=== PATIENT | male | born 1980 | race Caucasian/White ===

== ENCOUNTER 2019-03-18 09:42 | Inpatient (IN) | payer MEDICAID ==
[~2019-03-18] VITALS: Ht 180.3 cm; Wt 128.5 kg
[2019-03-18 10:13] LABS: BASOPHILS % (AUTO) 0.6 % (0.0-2.0); EOSINOPHILS % (AUTO) 0.5 % (1.0-6.0); HEMATOCRIT 48.1 % (41-53); HEMOGLOBIN 18.5 g/dL (13.5-17.5); LYMPHOCYTES # (AUTO) 3.7 K/uL (1.0-4.8); LYMPHOCYTES % (AUTO) 20.7 % (22.0-44.0); MEAN CORPUSCULAR HEMOGLOBIN 34.9 pg (26.0-34.0); MEAN CORPUSCULAR VOLUME 91 fL (80-100); MONOCYTES # (AUTO) 1.3 K/uL (0.1-1.0); NEUTROPHILS # (AUTO) 12.8 K/uL (1.8-7.7); NEUTROPHILS % (AUTO) 71.2 % (40.0-70.0); PLATELET COUNT (AUTO) 326 K/uL (150-450); RED CELL DISTRIBUTION WIDTH 14.5 % (11.5-14.5)
[2019-03-18] MEDS ORDERED: SODIUM CHLORIDE 0.9% 1,000 ML IV ONE (10:15)
[2019-03-18] MEDS ORDERED: DICYCLOMINE HCL 20 MG TABLET PO ONE (10:15)
[2019-03-18] MEDS ORDERED: ONDANSETRON HCL 4 MG/2 ML VIAL IVP ONE (10:15)
[2019-03-18 10:41] LABS: CHLORIDE 87 mmol/L (98-107); POTASSIUM 4.9 mmol/L (3.5-5.1); SODIUM SERUM 121 mmol/L (136-145)
[2019-03-18 10:42] LABS: ANION GAP 26 mmol/L (8-16); CARBON DIOXIDE 8 mmol/L (22-29)
[2019-03-18 10:43] LABS: GLUCOSE,RANDOM 644 mg/dL (70-110)
[2019-03-18] MEDS ORDERED: POTASSIUM CHL 20 MEQ/0.45% NS 1,000 ML IV PRN ×2 (10:46→22:06)
[2019-03-18] MEDS ORDERED: DEXTROSE 5%-0.45% SODIUM CHL 1,000 ML IV PRN ×2 (10:46→22:06)
[2019-03-18] MEDS ORDERED: POTASSIUM CHLORIDE 40 MEQ in SODIUM CHLORIDE 0.45% 1,000 ML IV PRN (10:46)
[2019-03-18] MEDS ORDERED: SODIUM CHLORIDE 0.9% 1,000 ML IV SCH ×2 (10:46→22:06)
[2019-03-18] MEDS ORDERED: SODIUM CHLORIDE 0.45% 1,000 ML IV PRN ×2 (10:46→22:06)
[2019-03-18] MEDS ORDERED: INSULIN REGULAR, HUMAN 100 UNITS in SODIUM CHLORIDE 0.9% 99 ML IV PRN ×4 (10:46→22:06)
[2019-03-18] MEDS ORDERED: DEXTROSE 50%-WATER 25 GM/50 ML SYRINGE IVP PRN ×2 (11:00→22:15)
[2019-03-18] MEDS ORDERED: INSULIN REGULAR, HUMAN 100 UNITS/ML IVP ONE (11:00)
[2019-03-18] MEDS ORDERED: CefTRIAXone 1 GM/DEXTROSE 50 ML IV ONE (11:00)
[2019-03-18] MEDS ORDERED: VANCOMYCIN HCL 1.5 GM in DEXTROSE 5%-WATER 250 ML IV ONE (11:00)
[2019-03-18 11:14] LABS: BILIRUBIN,TOTAL 0.5 mg/dL (0.1-1.0); CALCIUM, TOTAL 8.2 mg/dL (8.8-10.5); GLOMERULAR FILTR. RATE CALC 42 mL/min (>60); UREA NITROGEN, BLOOD 20 mg/dL (7-18)
[2019-03-18 11:15] LABS: ALANINE AMINOTRANSFERASE 30 U/L (12-78); ALBUMIN 4.6 g/dL (3.4-5.0); ALKALINE PHOSPHATASE 142 U/L (46-116); ASPARTATE AMINOTRANSFERASE 16 U/L (15-37); TOTAL PROTEIN, SERUM 7.9 g/dL (6.4-8.2)
[2019-03-18 11:16] LABS: CREATININE 1.83 mg/dL (0.60-1.30)
[2019-03-18 11:28] LABS: LIPASE 3055 U/L (73-393)
[2019-03-18 11:33] LABS: ABG BASE EXCESS -28.7 mmol/L (-2.0-3.0); ABG CARBOXYHEMOGLOBIN 0.2 % (0.0-1.5); ABG METHEMOGLOBIN 0.5 % (0.0-1.5); ABG OXYGEN CONTENT 22.3 mL/dL (15.0-23.0); ABG OXYGEN SATURATION 98.4 % (95.0-98.0); ABG OXYHEMOGLOBIN 97.7 % (94.0-100.0); ABG TOTAL HEMOGLOBIN 16.1 G/dL (12.0-18.0); PO2, ARTERIAL BG 136.3 mmHg (92.0-100.0); SOURCE, BLOOD GAS ARTERIAL; TEMPERATURE, FAHRENHEIT, BG 97.9 FAHREN (96.0-98.6)
[2019-03-18 11:35] LABS: ABG PCO2 9 mmHg (35-45); ABG PH 7.023 (7.350-7.450)
[2019-03-18 11:36] LABS: ABG HCO3 7.2 mmol/L (22.0-26.0); O2 DEVICE,BLOOD GAS ROOM AIR (ROOM AIR); SITE, BLOOD GAS RT RADIAL
[2019-03-18 11:39] LABS: GLUCOSE,POINT OF CARE 531 MG/DL (70-110)
[2019-03-18 11:55] LABS: APPEARANCE,URINE CLEAR (CLEAR); BILIRUBIN,URINE NEGATIVE (NEGATIVE); GLUCOSE, URINE (UA) >=1000 mg/dL (NEGATIVE); KETONES,URINE >=80 mg/dL (NEGATIVE); LEUKOCYTE ESTERASE ,URINE NEGATIVE (NEGATIVE); NITRATE,URINE NEGATIVE (NEGATIVE); OCCULT BLOOD,URINE MODERATE (NEGATIVE); PROTEIN,URINE SEE CONFIRM (NEGATIVE); UROBILINOGEN,URINE 0.2 mg/dL (<=1.0)
[2019-03-18 11:56] LABS: GLUCOSE,POINT OF CARE 501 MG/DL (70-110)
[2019-03-18] MEDS ORDERED: MORPHINE SULFATE 4 MG/ML SYRINGE IVP ONE (12:00)
[2019-03-18 12:01] LABS: AMPHET/METH SCREEN,URINE NEGATIVE (NEGATIVE); BARBITURATE SCREEN, URINE NEGATIVE (NEGATIVE); BENZODIAZEPINES SCREEN,URINE NEGATIVE (NEGATIVE); CANNABINOID SCREEN,URINE NEGATIVE (NEGATIVE); COCAINE SCREEN,URINE NEGATIVE (NEGATIVE); METHADONE SCREEN, URINE NEGATIVE (NEGATIVE); OPIATE SCREEN,URINE NEGATIVE (NEGATIVE)
[2019-03-18 12:12] LABS: SULFOSALICYLIC ACID,URINE Trace (Negative)
[2019-03-18 12:17] LABS: BACTERIA,URINE None Seen /HPF (None Seen); RBC,URINE None Seen /HPF (0-2); SQUAMOUS EPITHELIAL CELL,UR Few /LPF (None Seen); WBC,URINE 0-2 /HPF (0-5)
[2019-03-18 12:19] LABS: PHENCYCLIDINE SCREEN,URINE NEGATIVE (NEGATIVE)
[2019-03-18 12:29] LABS: GLUCOSE,POINT OF CARE 521 MG/DL (70-110)
[2019-03-18 12:45] LABS: HEMATOCRIT 45.9 % (41-53); HEMOGLOBIN 15.1 g/dL (13.5-17.5); RED BLOOD CELL COUNT(AUTO) 5.03 MIL/uL (4.50-5.90)
[2019-03-18 12:46] LABS: MEAN CORPUSCULAR VOLUME 91 fL (80-100); PLATELET COUNT (AUTO) 296 K/uL (150-450); RED CELL DISTRIBUTION WIDTH 15.1 % (11.5-14.5)
[2019-03-18 13:14] LABS: BAND NEUTROPHILS % (MANUAL) 1 % (0-5); BASOPHILS % (MANUAL) 1 % (0-2); LYMPHOCYTES % (MANUAL) 19 % (22-44); MONOCYTES % (MANUAL) 7 % (2-9); SEGMENTED NEUTROPHILS % 72 % (40-70)
[2019-03-18 13:15] LABS: PLATELET MORPHOLOGY COMMENT GIANT PLTS PRESENT
[2019-03-18 13:22] LABS: GLUCOSE,POINT OF CARE 494 MG/DL (70-110)
[2019-03-18] MEDS ORDERED: ONDANSETRON HCL 4 MG/2 ML VIAL IVP PRN (13:30)
[2019-03-18] MEDS ORDERED: 0.9% SODIUM CHLORIDE 10 ML SYRINGE IVP PRN (13:30)
[2019-03-18] MEDS ORDERED: ACETAMINOPHEN 325 MG TABLET PO PRN (13:30)
[2019-03-18] MEDS: INSULIN REGULAR, HUMAN 100 UNITS/ML IVP PRN ×6 (13:30→22:44)
[2019-03-18 13:59] LABS: LACTIC ACID 3.5 mmol/L (0.4-2.0)
[2019-03-18 14:42] LABS: GLUCOSE,POINT OF CARE 479 MG/DL (70-110)
[2019-03-18 15:06] LABS: POTASSIUM 4.8 mmol/L (3.5-5.1)
[2019-03-18] MEDS ORDERED: SODIUM BICARBONATE 150 MEQ in DEXTROSE 5%-WATER 1,000 ML IV ONE (15:15)
[2019-03-18 15:16] LABS: CALCIUM, TOTAL 7.7 mg/dL (8.8-10.5); CREATININE 1.47 mg/dL (0.60-1.30)
[2019-03-18 15:43] LABS: GLUCOSE,POINT OF CARE 413 MG/DL (70-110)
[2019-03-18] MEDS ORDERED: SODIUM CHLORIDE 0.9% 500 ML IV ONE (16:45)
[2019-03-18 16:48] LABS: GLUCOSE,POINT OF CARE 389 MG/DL (70-110)
[2019-03-18 16:51] LABS: ABG A-A DIFF O2 4.8 mmHg (10-20.0); ABG BASE EXCESS -24.7 mmol/L (-2.0-3.0); ABG CARBOXYHEMOGLOBIN 0.1 % (0.0-1.5); ABG METHEMOGLOBIN 0.3 % (0.0-1.5); ABG OXYGEN CONTENT 21.6 mL/dL (15.0-23.0); ABG OXYGEN SATURATION 98.5 % (95.0-98.0); ABG OXYHEMOGLOBIN 98.1 % (94.0-100.0); ABG TOTAL HEMOGLOBIN 15.5 G/dL (12.0-18.0); PO2, ARTERIAL BG 131.3 mmHg (92.0-100.0); SOURCE, BLOOD GAS ARTERIAL; TEMPERATURE, FAHRENHEIT, BG 97.9 FAHREN (96.0-98.6)
[2019-03-18 16:57] LABS: ABG HCO3 9.3 mmol/L (22.0-26.0); ABG PCO2 12 mmHg (35-45); ABG PH 7.159 (7.350-7.450); O2 DEVICE,BLOOD GAS ROOM AIR (ROOM AIR); SITE, BLOOD GAS RT RADIAL
[2019-03-18 17:45] LABS: GLUCOSE,POINT OF CARE 346 MG/DL (70-110)
[2019-03-18 18:23] LABS: ALKALINE PHOSPHATASE 130 U/L (46-116); ANION GAP 23 mmol/L (8-16); CALCIUM, TOTAL 6.9 mg/dL (8.8-10.5); CHLORIDE 95 mmol/L (98-107); PHOSPHORUS 1.9 mg/dL (2.5-4.9); POTASSIUM 4.5 mmol/L (3.5-5.1); SODIUM SERUM 126 mmol/L (136-145); UREA NITROGEN, BLOOD 18 mg/dL (7-18)
[2019-03-18 18:43] LABS: CARBON DIOXIDE 8 mmol/L (22-29)
[2019-03-18 18:44] LABS: GLOMERULAR FILTR. RATE CALC 56 mL/min (>60); GLUCOSE,RANDOM 430 mg/dL (70-110)
[2019-03-18 18:45] LABS: ACETAMINOPHEN < 2 mcg/mL (10-30)
[2019-03-18 18:46] LABS: ASPARTATE AMINOTRANSFERASE 17 U/L (15-37); CREATININE 1.42 mg/dL (0.60-1.30)
[2019-03-18 18:47] LABS: ALANINE AMINOTRANSFERASE 30 U/L (12-78); TOTAL PROTEIN, SERUM 7.8 g/dL (6.4-8.2)
[2019-03-18 18:50] LABS: SALICYLATE 5.5 mg/dL (2.8-20.0)
[2019-03-18 18:53] LABS: GLUCOSE,POINT OF CARE 281 MG/DL (70-110)
[2019-03-18 19:00] LABS: LACTATE DEHYDROGENASE 266 U/L (85-227)
[2019-03-18 20:00] VITALS: BP 121/92
[2019-03-18] MEDS ORDERED: CALCIUM GLUCONATE 100 MG/ML 10 ML IVP ONE (20:15)
[2019-03-18] MEDS ORDERED: SODIUM PHOS,M-BASIC-D-BASIC 30 MMOL in DEXTROSE 5%-WATER 250 ML IV ONE ×2 (20:15→22:30)
[2019-03-18 21:48] LABS: ANION GAP 19 mmol/L (8-16); CALCIUM, TOTAL 6.7 mg/dL (8.8-10.5); CARBON DIOXIDE 10 mmol/L (22-29); CHLORIDE 97 mmol/L (98-107); GLUCOSE,RANDOM 330 mg/dL (70-110); SODIUM SERUM 126 mmol/L (136-145); UREA NITROGEN, BLOOD 15 mg/dL (7-18)
[2019-03-18] MEDS: INSULIN REGULAR, HUMAN 100 UNITS in SODIUM CHLORIDE 0.9% 99 ML IV PRN ×2 (21:50)
[2019-03-18 22:14] LABS: PHOSPHORUS 0.9 mg/dL (2.5-4.9)
[2019-03-18] MEDS ORDERED: MAGNESIUM SULFATE 2 GM/WATER 50 ML IV ONE (22:30)
[2019-03-18 22:52] LABS: CREATININE 1.18 mg/dL (0.60-1.30); GLOMERULAR FILTR. RATE CALC > 60 mL/min (>60)
[2019-03-18] MEDS ORDERED: SODIUM CHLORIDE 0.9% 250 ML IV ONE (23:33)
[2019-03-19] VITALS: BP 105/65
[2019-03-19] MEDS: INSULIN REGULAR, HUMAN 100 UNITS/ML IVP PRN (00:09)
[2019-03-19 00:46] LABS: ANION GAP 19 mmol/L (8-16); CALCIUM, TOTAL 7.3 mg/dL (8.8-10.5); CARBON DIOXIDE 12 mmol/L (22-29); CHLORIDE 99 mmol/L (98-107); GLUCOSE,RANDOM 294 mg/dL (70-110); POTASSIUM 3.7 mmol/L (3.5-5.1); SODIUM SERUM 130 mmol/L (136-145); UREA NITROGEN, BLOOD 14 mg/dL (7-18)
[2019-03-19 00:50] LABS: CREATININE 1.16 mg/dL (0.60-1.30); GLOMERULAR FILTR. RATE CALC > 60 mL/min (>60)
[2019-03-19] MEDS: POTASSIUM CHLORIDE 40 MEQ in SODIUM CHLORIDE 0.45% 1,000 ML IV PRN ×3 (01:17→17:05)
[2019-03-19] MEDS ORDERED: INFLUENZA VIRUS VACCINE QVS 2019-20 (3YR+)/PF 60 MCG/0.5 ML SYRINGE IM ONE (01:30)
[2019-03-19 01:55] LABS: BASOPHILS % (AUTO) 0.7 % (0.0-2.0); EOSINOPHILS % (AUTO) 0.1 % (1.0-6.0); HEMATOCRIT 42.7 % (41-53); MEAN CORPUSCULAR HEMOGLOBIN 32.2 pg (26.0-34.0); MEAN CORPUSCULAR VOLUME 85 fL (80-100); MONOCYTES # (AUTO) 0.3 K/uL (0.1-1.0); MONOCYTES % (AUTO) 3.1 % (2.0-9.0); NEUTROPHILS % (AUTO) 85.1 % (40.0-70.0); PLATELET COUNT (AUTO) 260 K/uL (150-450); RED BLOOD CELL COUNT(AUTO) 5.04 MIL/uL (4.50-5.90); RED CELL DISTRIBUTION WIDTH 14.6 % (11.5-14.5)
[2019-03-19 02:11] LABS: MEAN CORPUSCULAR HGB CONC 34.2 G/dL (31.0-37.0)
[2019-03-19 02:13] LABS: HEMOGLOBIN 15.2 g/dL (13.5-17.5)
[2019-03-19] MEDS ORDERED: SODIUM CHLORIDE 0.9% 1,000 ML IV SCH (03:04)
[2019-03-19] MEDS ORDERED: SODIUM CHLORIDE 0.45% 1,000 ML IV PRN (03:04)
[2019-03-19] MEDS ORDERED: DEXTROSE 5%-0.45% SODIUM CHL 1,000 ML IV PRN (03:04)
[2019-03-19] MEDS ORDERED: POTASSIUM CHLORIDE 40 MEQ in SODIUM CHLORIDE 0.45% 1,000 ML IV PRN (03:04)
[2019-03-19] MEDS ORDERED: POTASSIUM CHL 20 MEQ/0.45% NS 1,000 ML IV PRN (03:04)
[2019-03-19] MEDS ORDERED: ALBUTEROL SULFATE 2.5 MG/0.5 ML NEB SOLUTION NEB PRN ×3 (03:15)
[2019-03-19] MEDS ORDERED: INSULIN REGULAR, HUMAN 100 UNITS/ML IVP ONE (03:15)
[2019-03-19] MEDS ORDERED: MAGNESIUM HYDROXIDE SUSPENSION 30 ML UDCUP PO PRN ×3 (03:15)
[2019-03-19] MEDS ORDERED: ZOLPIDEM TARTRATE 5 MG TABLET PO PRN ×3 (03:15)
[2019-03-19] MEDS ORDERED: MORPHINE SULFATE 2 MG/ML SYRINGE IVP PRN ×2 (03:15)
[2019-03-19] MEDS ORDERED: DEXTROSE 50%-WATER 25 GM/50 ML SYRINGE IVP PRN (03:15)
[2019-03-19] MEDS ORDERED: INSULIN REGULAR, HUMAN 100 UNITS/ML IVP PRN (03:15)
[2019-03-19] MEDS ORDERED: OxyCODONE HCL/ACETAMINOPHEN 5-325 MG TABLET PO PRN (03:15)
[2019-03-19] MEDS ORDERED: IPRATROPIUM BROMIDE 0.5 MG/2.5 ML NEB SOLUTION NEB PRN ×3 (03:15)
[2019-03-19] MEDS ORDERED: HYDROCODONE/ACETAMINOPHEN 5-325 MG TABLET PO PRN ×2 (03:15)
[2019-03-19] MEDS ORDERED: ONDANSETRON HCL 4 MG/2 ML VIAL IVP PRN ×3 (03:15)
[2019-03-19] MEDS ORDERED: BISACODYL 10 MG RECTAL RECTAL SUPPOSITORY PR PRN ×3 (03:15)
[2019-03-19] MEDS ORDERED: ACETAMINOPHEN 325 MG TABLET PO PRN ×3 (03:15)
[2019-03-19] MEDS ORDERED: MORPHINE SULFATE 4 MG/ML SYRINGE IVP PRN (03:15)
[2019-03-19] MEDS: INSULIN REGULAR, HUMAN 100 UNITS in SODIUM CHLORIDE 0.9% 99 ML IV PRN ×8 (03:31→23:18)
[2019-03-19 04:00] VITALS: BP 139/82
[2019-03-19 05:33] LABS: ALBUMIN 2.9 g/dL (3.4-5.0); ALKALINE PHOSPHATASE 102 U/L (46-116); ANION GAP 12 mmol/L (8-16); CALCIUM, TOTAL 7.4 mg/dL (8.8-10.5); CARBON DIOXIDE 16 mmol/L (22-29); CHLORIDE 100 mmol/L (98-107); CREATININE 1.08 mg/dL (0.60-1.30); GLOMERULAR FILTR. RATE CALC > 60 mL/min (>60); GLUCOSE,RANDOM 198 mg/dL (70-110); POTASSIUM 3.9 mmol/L (3.5-5.1); SODIUM SERUM 128 mmol/L (136-145); UREA NITROGEN, BLOOD 12 mg/dL (7-18)
[2019-03-19 05:34] LABS: BASOPHILS % (AUTO) 0.5 % (0.0-2.0); EOSINOPHILS % (AUTO) 0.3 % (1.0-6.0); HEMATOCRIT 42.1 % (41-53); HEMOGLOBIN 15.4 g/dL (13.5-17.5); LYMPHOCYTES % (AUTO) 10.2 % (22.0-44.0); MEAN CORPUSCULAR HEMOGLOBIN 30.9 pg (26.0-34.0); MEAN CORPUSCULAR HGB CONC 36.5 G/dL (31.0-37.0); MEAN CORPUSCULAR VOLUME 85 fL (80-100); MONOCYTES # (AUTO) 0.5 K/uL (0.1-1.0); MONOCYTES % (AUTO) 4.9 % (2.0-9.0); NEUTROPHILS # (AUTO) 7.9 K/uL (1.8-7.7); NEUTROPHILS % (AUTO) 84.1 % (40.0-70.0); PLATELET COUNT (AUTO) 208 K/uL (150-450); RED BLOOD CELL COUNT(AUTO) 4.97 MIL/uL (4.50-5.90); RED CELL DISTRIBUTION WIDTH 14.8 % (11.5-14.5)
[2019-03-19 06:02] LABS: TOTAL PROTEIN, SERUM 6.1 g/dL (6.4-8.2)
[2019-03-19 06:03] LABS: ALANINE AMINOTRANSFERASE 23 U/L (12-78); ASPARTATE AMINOTRANSFERASE 34 U/L (15-37)
[2019-03-19] MEDS ORDERED: SODIUM PHOS,M-BASIC-D-BASIC 30 MMOL in DEXTROSE 5%-WATER 250 ML IV ONE ×2 (06:15→16:15)
[2019-03-19 07:25] LABS: GLUCOSE,POINT OF CARE 161 MG/DL (70-110)
[2019-03-19 07:25] LABS: GLUCOSE,POINT OF CARE 265 MG/DL (70-110)
[2019-03-19 07:25] LABS: GLUCOSE,POINT OF CARE 229 MG/DL (70-110)
[2019-03-19 07:25] LABS: GLUCOSE,POINT OF CARE 243 MG/DL (70-110)
[2019-03-19 07:25] LABS: GLUCOSE,POINT OF CARE 178 MG/DL (70-110)
[2019-03-19 07:25] LABS: GLUCOSE,POINT OF CARE 212 MG/DL (70-110)
[2019-03-19 07:25] LABS: GLUCOSE,POINT OF CARE 256 MG/DL (70-110)
[2019-03-19 07:25] LABS: GLUCOSE,POINT OF CARE 261 MG/DL (70-110)
[2019-03-19 07:25] LABS: GLUCOSE,POINT OF CARE 183 MG/DL (70-110)
[2019-03-19 07:25] LABS: GLUCOSE,POINT OF CARE 161 MG/DL (70-110)
[2019-03-19 07:25] LABS: GLUCOSE,POINT OF CARE 178 MG/DL (70-110)
[2019-03-19 07:25] LABS: GLUCOSE,POINT OF CARE 228 MG/DL (70-110)
[2019-03-19 08:00] VITALS: BP 129/75
[2019-03-19] MEDS ORDERED: HEPARIN SODIUM,PORCINE 5,000 UNITS/ML VIAL SQ SCH ×2 (08:00)
[2019-03-19] MEDS: HEPARIN SODIUM,PORCINE 5,000 UNITS/ML VIAL SQ SCH ×3 (08:59→23:28)
[2019-03-19] MEDS: DOCUSATE SODIUM 100 MG CAPSULE PO SCH ×2 (09:00→20:31)
[2019-03-19] MEDS ORDERED: DOCUSATE SODIUM 100 MG CAPSULE PO SCH ×2 (09:00)
[2019-03-19] MEDS: DEXTROSE 5%-0.45% SODIUM CHL 1,000 ML IV SCH ×3 (11:04→21:10)
[2019-03-19 12:00] VITALS: BP 128/57
[2019-03-19 16:00] VITALS: BP 127/82
[2019-03-19 16:02] LABS: ANION GAP 15 mmol/L (8-16); CALCIUM, TOTAL 7.8 mg/dL (8.8-10.5); CARBON DIOXIDE 14 mmol/L (22-29); CHLORIDE 101 mmol/L (98-107); CREATININE 0.97 mg/dL (0.60-1.30); GLOMERULAR FILTR. RATE CALC > 60 mL/min (>60); GLUCOSE,RANDOM 211 mg/dL (70-110); PHOSPHORUS 1.7 mg/dL (2.5-4.9); POTASSIUM 3.3 mmol/L (3.5-5.1); SODIUM SERUM 130 mmol/L (136-145); UREA NITROGEN, BLOOD 12 mg/dL (7-18)
[2019-03-19] MEDS: POTASSIUM CHL 10 MEQ/WATER 50 ML IV PRN ×3 (17:41→22:25)
[2019-03-19 20:00] VITALS: BP 130/89
[2019-03-19 20:27] LABS: GLUCOSE,POINT OF CARE 186 MG/DL (70-110)
[2019-03-19 20:27] LABS: GLUCOSE,POINT OF CARE 198 MG/DL (70-110)
[2019-03-19 20:27] LABS: GLUCOSE,POINT OF CARE 192 MG/DL (70-110)
[2019-03-19 20:27] LABS: GLUCOSE,POINT OF CARE 226 MG/DL (70-110)
[2019-03-19 20:27] LABS: GLUCOSE,POINT OF CARE 215 MG/DL (70-110)
[2019-03-19 20:27] LABS: GLUCOSE,POINT OF CARE 172 MG/DL (70-110)
[2019-03-20] VITALS (13 sets, daily range): BP systolic 110–144; BP diastolic 52–86
[2019-03-20 01:49] LABS: ANION GAP 15 mmol/L (8-16); CARBON DIOXIDE 16 mmol/L (22-29); CHLORIDE 101 mmol/L (98-107); CREATININE 0.99 mg/dL (0.60-1.30); GLOMERULAR FILTR. RATE CALC > 60 mL/min (>60); GLUCOSE,RANDOM 82 mg/dL (70-110); SODIUM SERUM 132 mmol/L (136-145); UREA NITROGEN, BLOOD 14 mg/dL (7-18)
[2019-03-20 01:50] LABS: POTASSIUM 2.9 mmol/L (3.5-5.1)
[2019-03-20] MEDS: POTASSIUM CHL 10 MEQ/WATER 50 ML IV PRN ×8 (01:58→20:49)
[2019-03-20] MEDS ORDERED: SODIUM CHLORIDE 0.9% 250 ML IV ONE (04:21)
[2019-03-20 06:05] LABS: BASOPHILS % (AUTO) 0.6 % (0.0-2.0); EOSINOPHILS % (AUTO) 0.8 % (1.0-6.0); HEMATOCRIT 38.5 % (41-53); HEMOGLOBIN 13.3 g/dL (13.5-17.5); LYMPHOCYTES # (AUTO) 1.7 K/uL (1.0-4.8); LYMPHOCYTES % (AUTO) 24.9 % (22.0-44.0); MEAN CORPUSCULAR HEMOGLOBIN 29.4 pg (26.0-34.0); MEAN CORPUSCULAR HGB CONC 34.6 G/dL (31.0-37.0); MEAN CORPUSCULAR VOLUME 85 fL (80-100); MONOCYTES # (AUTO) 0.7 K/uL (0.1-1.0); MONOCYTES % (AUTO) 9.3 % (2.0-9.0); NEUTROPHILS # (AUTO) 4.5 K/uL (1.8-7.7); NEUTROPHILS % (AUTO) 64.4 % (40.0-70.0); PLATELET COUNT (AUTO) 163 K/uL (150-450); RED BLOOD CELL COUNT(AUTO) 4.52 MIL/uL (4.50-5.90); RED CELL DISTRIBUTION WIDTH 15.2 % (11.5-14.5)
[2019-03-20 06:30] LABS: ALANINE AMINOTRANSFERASE 22 U/L (12-78); ALBUMIN 2.4 g/dL (3.4-5.0); ALKALINE PHOSPHATASE 81 U/L (46-116); AMYLASE 152 U/L (25-115); ANION GAP 12 mmol/L (8-16); ASPARTATE AMINOTRANSFERASE 27 U/L (15-37); BILIRUBIN,TOTAL 0.7 mg/dL (0.1-1.0); CALCIUM, TOTAL 7.9 mg/dL (8.8-10.5); CARBON DIOXIDE 17 mmol/L (22-29); CHLORIDE 101 mmol/L (98-107); GLOMERULAR FILTR. RATE CALC > 60 mL/min (>60); GLUCOSE,RANDOM 219 mg/dL (70-110); LIPASE 940 U/L (73-393); PHOSPHORUS 1.6 mg/dL (2.5-4.9); POTASSIUM 3.5 mmol/L (3.5-5.1); SODIUM SERUM 130 mmol/L (136-145); TOTAL PROTEIN, SERUM 6.5 g/dL (6.4-8.2); UREA NITROGEN, BLOOD 13 mg/dL (7-18)
[2019-03-20] MEDS ORDERED: INSULIN REGULAR, HUMAN 100 UNITS in SODIUM CHLORIDE 0.9% 99 ML IV PRN ×2 (06:36)
[2019-03-20] MEDS ORDERED: SODIUM CHLORIDE 0.45% 1,000 ML IV PRN (06:36)
[2019-03-20] MEDS ORDERED: POTASSIUM CHL 20 MEQ/0.45% NS 1,000 ML IV PRN (06:36)
[2019-03-20] MEDS ORDERED: DEXTROSE 50%-WATER 25 GM/50 ML SYRINGE IVP PRN (06:45)
[2019-03-20] MEDS: POTASSIUM CHLORIDE 40 MEQ in SODIUM CHLORIDE 0.45% 1,000 ML IV PRN ×5 (07:10→23:34)
[2019-03-20 07:22] LABS: GLUCOSE,POINT OF CARE 145 MG/DL (70-110)
[2019-03-20 07:22] LABS: GLUCOSE,POINT OF CARE 60 MG/DL (70-110)
[2019-03-20 07:22] LABS: GLUCOSE,POINT OF CARE 179 MG/DL (70-110)
[2019-03-20 07:22] LABS: GLUCOSE,POINT OF CARE 190 MG/DL (70-110)
[2019-03-20 07:22] LABS: GLUCOSE,POINT OF CARE 168 MG/DL (70-110)
[2019-03-20 07:22] LABS: GLUCOSE,POINT OF CARE 74 MG/DL (70-110)
[2019-03-20 07:22] LABS: GLUCOSE,POINT OF CARE 83 MG/DL (70-110)
[2019-03-20 07:22] LABS: GLUCOSE,POINT OF CARE 206 MG/DL (70-110)
[2019-03-20 07:22] LABS: GLUCOSE,POINT OF CARE 178 MG/DL (70-110)
[2019-03-20 07:22] LABS: GLUCOSE,POINT OF CARE 218 MG/DL (70-110)
[2019-03-20 08:15] LABS: GLUCOSE,POINT OF CARE 154 MG/DL (70-110)
[2019-03-20] MEDS: DOCUSATE SODIUM 100 MG CAPSULE PO SCH ×3 (09:00→21:00)
[2019-03-20 09:26] LABS: GLUCOSE,POINT OF CARE 143 MG/DL (70-110)
[2019-03-20] MEDS ORDERED: SODIUM PHOS,M-BASIC-D-BASIC 30 MMOL in DEXTROSE 5%-WATER 250 ML IV ONE (09:45)
[2019-03-20] MEDS: HEPARIN SODIUM,PORCINE 5,000 UNITS/ML VIAL SQ SCH ×2 (09:55→19:51)
[2019-03-20 09:58] LABS: ANION GAP 8 mmol/L (8-16); CALCIUM, TOTAL 7.9 mg/dL (8.8-10.5); CARBON DIOXIDE 21 mmol/L (22-29); CHLORIDE 103 mmol/L (98-107); CREATININE 0.87 mg/dL (0.60-1.30); GLOMERULAR FILTR. RATE CALC > 60 mL/min (>60); GLUCOSE,RANDOM 152 mg/dL (70-110); POTASSIUM 3.2 mmol/L (3.5-5.1); SODIUM SERUM 132 mmol/L (136-145); UREA NITROGEN, BLOOD 12 mg/dL (7-18)
[2019-03-20 10:23] LABS: GLUCOSE,POINT OF CARE 137 MG/DL (70-110)
[2019-03-20 11:16] LABS: GLUCOSE,POINT OF CARE 116 MG/DL (70-110)
[2019-03-20] MEDS: DEXTROSE 5%-0.45% SODIUM CHL 1,000 ML IV PRN ×2 (11:47→23:33)
[2019-03-20] MEDS: INSULIN REGULAR, HUMAN 100 UNITS in SODIUM CHLORIDE 0.9% 99 ML IV PRN ×2 (12:18)
[2019-03-20 12:28] LABS: GLUCOSE,POINT OF CARE 124 MG/DL (70-110)
[2019-03-20 13:42] LABS: GLUCOSE,POINT OF CARE 124 MG/DL (70-110)
[2019-03-20 14:30] LABS: GLUCOSE,POINT OF CARE 123 MG/DL (70-110)
[2019-03-20 15:33] LABS: GLUCOSE,POINT OF CARE 181 MG/DL (70-110)
[2019-03-20 16:36] LABS: GLUCOSE,POINT OF CARE 179 MG/DL (70-110)
[2019-03-20 18:42] LABS: GLUCOSE,POINT OF CARE 237 MG/DL (70-110)
[2019-03-20 18:50] LABS: ANION GAP 11 mmol/L (8-16); CALCIUM, TOTAL 7.7 mg/dL (8.8-10.5); CARBON DIOXIDE 18 mmol/L (22-29); CHLORIDE 100 mmol/L (98-107); CREATININE 0.79 mg/dL (0.60-1.30); GLOMERULAR FILTR. RATE CALC > 60 mL/min (>60); GLUCOSE,RANDOM 279 mg/dL (70-110); PHOSPHORUS 1.7 mg/dL (2.5-4.9); POTASSIUM 3.5 mmol/L (3.5-5.1); SODIUM SERUM 129 mmol/L (136-145); UREA NITROGEN, BLOOD 10 mg/dL (7-18)
[2019-03-20] MEDS: INSULIN REGULAR, HUMAN 100 UNITS/ML IVP PRN ×2 (20:06→21:12)
[2019-03-20 20:17] LABS: GLUCOSE,POINT OF CARE 274 MG/DL (70-110)
[2019-03-20] MEDS ORDERED: POTASSIUM CHLORIDE 20 MEQ ER TABLET PO PRN (21:00)
[2019-03-21] VITALS (7 sets, daily range): BP systolic 102–151; BP diastolic 56–96
[2019-03-21] MEDS: INSULIN REGULAR, HUMAN 100 UNITS in SODIUM CHLORIDE 0.9% 99 ML IV PRN ×2 (00:31)
[2019-03-21 02:01] LABS: ANION GAP 11 mmol/L (8-16); CALCIUM, TOTAL 7.8 mg/dL (8.8-10.5); CARBON DIOXIDE 20 mmol/L (22-29); CHLORIDE 106 mmol/L (98-107); CREATININE 0.76 mg/dL (0.60-1.30); GLOMERULAR FILTR. RATE CALC > 60 mL/min (>60); GLUCOSE,RANDOM 236 mg/dL (70-110); SODIUM SERUM 137 mmol/L (136-145); UREA NITROGEN, BLOOD 10 mg/dL (7-18)
[2019-03-21] MEDS: POTASSIUM CHLORIDE 40 MEQ in SODIUM CHLORIDE 0.45% 1,000 ML IV PRN (02:14)
[2019-03-21] MEDS: HEPARIN SODIUM,PORCINE 5,000 UNITS/ML VIAL SQ SCH ×4 (02:14→23:56)
[2019-03-21 05:26] LABS: BASOPHILS % (AUTO) 0.7 % (0.0-2.0); EOSINOPHILS % (AUTO) 2.6 % (1.0-6.0); HEMOGLOBIN 12.2 g/dL (13.5-17.5); LYMPHOCYTES % (AUTO) 36.5 % (22.0-44.0); MEAN CORPUSCULAR HEMOGLOBIN 28.9 pg (26.0-34.0); MEAN CORPUSCULAR HGB CONC 33.9 G/dL (31.0-37.0); MEAN CORPUSCULAR VOLUME 85 fL (80-100); MONOCYTES # (AUTO) 0.6 K/uL (0.1-1.0); MONOCYTES % (AUTO) 10.7 % (2.0-9.0); NEUTROPHILS # (AUTO) 2.7 K/uL (1.8-7.7); NEUTROPHILS % (AUTO) 49.5 % (40.0-70.0); PLATELET COUNT (AUTO) 176 K/uL (150-450); RED BLOOD CELL COUNT(AUTO) 4.23 MIL/uL (4.50-5.90)
[2019-03-21 05:40] LABS: ACETONE,BLOOD NEGATIVE (NEGATIVE)
[2019-03-21 05:41] LABS: ALANINE AMINOTRANSFERASE 20 U/L (12-78); ALBUMIN 2.1 g/dL (3.4-5.0); ALKALINE PHOSPHATASE 69 U/L (46-116); AMYLASE 49 U/L (25-115); ANION GAP 8 mmol/L (8-16); ASPARTATE AMINOTRANSFERASE 21 U/L (15-37); BILIRUBIN,TOTAL 0.5 mg/dL (0.1-1.0); CALCIUM, TOTAL 7.9 mg/dL (8.8-10.5); CARBON DIOXIDE 21 mmol/L (22-29); CHLORIDE 105 mmol/L (98-107); CREATININE 0.73 mg/dL (0.60-1.30); GLOMERULAR FILTR. RATE CALC > 60 mL/min (>60); GLUCOSE,RANDOM 187 mg/dL (70-110); LIPASE 469 U/L (73-393); PHOSPHORUS 1.6 mg/dL (2.5-4.9); POTASSIUM 3.4 mmol/L (3.5-5.1); SODIUM SERUM 134 mmol/L (136-145); TOTAL PROTEIN, SERUM 5.8 g/dL (6.4-8.2); UREA NITROGEN, BLOOD 8 mg/dL (7-18)
[2019-03-21] MEDS: POTASSIUM CHLORIDE 20 MEQ ER TABLET PO PRN (06:34)
[2019-03-21 07:05] LABS: GLUCOSE,POINT OF CARE 193 MG/DL (70-110)
[2019-03-21 07:05] LABS: GLUCOSE,POINT OF CARE 261 MG/DL (70-110)
[2019-03-21 07:05] LABS: GLUCOSE,POINT OF CARE 126 MG/DL (70-110)
[2019-03-21 07:05] LABS: GLUCOSE,POINT OF CARE 177 MG/DL (70-110)
[2019-03-21 07:05] LABS: GLUCOSE,POINT OF CARE 213 MG/DL (70-110)
[2019-03-21 07:05] LABS: GLUCOSE,POINT OF CARE 166 MG/DL (70-110)
[2019-03-21 07:05] LABS: GLUCOSE,POINT OF CARE 205 MG/DL (70-110)
[2019-03-21 07:05] LABS: GLUCOSE,POINT OF CARE 217 MG/DL (70-110)
[2019-03-21 07:05] LABS: GLUCOSE,POINT OF CARE 209 MG/DL (70-110)
[2019-03-21 07:05] LABS: GLUCOSE,POINT OF CARE 206 MG/DL (70-110)
[2019-03-21] MEDS ORDERED: SODIUM PHOS,M-BASIC-D-BASIC 30 MMOL in DEXTROSE 5%-WATER 250 ML IV ONE (08:30)
[2019-03-21] MEDS: DOCUSATE SODIUM 100 MG CAPSULE PO SCH ×2 (09:00→20:55)
[2019-03-21] MEDS ORDERED: INSULIN GLARGINE,HUM.REC.ANLOG 100 UNITS/ML SQ SCH (09:15)
[2019-03-21] MEDS ORDERED: GLUCAGON,HUMAN RECOMBINANT 1 MG VIAL IM PRN (09:15)
[2019-03-21 09:16] LABS: GLUCOSE,POINT OF CARE 171 MG/DL (70-110)
[2019-03-21] MEDS: SODIUM CHLORIDE 0.9% 1,000 ML IV SCH ×2 (09:51→19:42)
[2019-03-21 10:59] LABS: ANION GAP 13 mmol/L (8-16); CALCIUM, TOTAL 7.9 mg/dL (8.8-10.5); CARBON DIOXIDE 18 mmol/L (22-29); CHLORIDE 106 mmol/L (98-107); CREATININE 0.71 mg/dL (0.60-1.30); GLOMERULAR FILTR. RATE CALC > 60 mL/min (>60); GLUCOSE,RANDOM 280 mg/dL (70-110); POTASSIUM 4.5 mmol/L (3.5-5.1); SODIUM SERUM 137 mmol/L (136-145); UREA NITROGEN, BLOOD 9 mg/dL (7-18)
[2019-03-21] MEDS: INSULIN LISPRO 100 UNITS/ML SQ PRN ×3 (11:31→20:55)
[2019-03-21 11:37] LABS: GLUCOSE,POINT OF CARE 255 MG/DL (70-110)
[2019-03-21 13:07] LABS: GLUCOSE,POINT OF CARE 105 MG/DL (70-110)
[2019-03-21 14:24] LABS: ANION GAP 12 mmol/L (8-16); CALCIUM, TOTAL 8.1 mg/dL (8.8-10.5); CARBON DIOXIDE 20 mmol/L (22-29); CHLORIDE 104 mmol/L (98-107); CREATININE 0.96 mg/dL (0.60-1.30); GLOMERULAR FILTR. RATE CALC > 60 mL/min (>60); GLUCOSE,RANDOM 393 mg/dL (70-110); POTASSIUM 4.6 mmol/L (3.5-5.1); SODIUM SERUM 136 mmol/L (136-145); UREA NITROGEN, BLOOD 11 mg/dL (7-18)
[2019-03-21 15:44] LABS: GLUCOSE,POINT OF CARE 355 MG/DL (70-110)
[2019-03-21] MEDS ORDERED: DEXTROSE 50%-WATER 25 GM/50 ML SYRINGE IVP PRN (19:15)
[2019-03-21 20:07] LABS: GLUCOSE,POINT OF CARE 288 MG/DL (70-110)
[2019-03-21] MEDS: INSULIN GLARGINE,HUM.REC.ANLOG 100 UNITS/ML SQ SCH (20:55)
[2019-03-21 21:24] LABS: GLUCOMETER DEV NAME(LOC) 6N.2; GLUCOSE,POINT OF CARE 335 MG/DL (70-110)
[2019-03-22 04:45] VITALS: BP 128/92
[2019-03-22] MEDS: INSULIN LISPRO 100 UNITS/ML SQ PRN ×3 (06:00→16:59)
[2019-03-22 07:31] LABS: GLUCOMETER DEV NAME(LOC) 6N.2; GLUCOSE,POINT OF CARE 242 MG/DL (70-110)
[2019-03-22 07:55] VITALS: BP 133/82
[2019-03-22] MEDS: HEPARIN SODIUM,PORCINE 5,000 UNITS/ML VIAL SQ SCH ×2 (08:08→15:59)
[2019-03-22] MEDS: INSULIN GLARGINE,HUM.REC.ANLOG 100 UNITS/ML SQ SCH (08:09)
[2019-03-22 08:14] LABS: BASOPHILS % (AUTO) 0.7 % (0.0-2.0); EOSINOPHILS % (AUTO) 3.2 % (1.0-6.0); HEMATOCRIT 35.6 % (41-53); HEMOGLOBIN 12.5 g/dL (13.5-17.5); LYMPHOCYTES # (AUTO) 1.9 K/uL (1.0-4.8); LYMPHOCYTES % (AUTO) 35.5 % (22.0-44.0); MEAN CORPUSCULAR HEMOGLOBIN 29.8 pg (26.0-34.0); MEAN CORPUSCULAR VOLUME 85 fL (80-100); MONOCYTES # (AUTO) 0.5 K/uL (0.1-1.0); MONOCYTES % (AUTO) 9.8 % (2.0-9.0); NEUTROPHILS # (AUTO) 2.8 K/uL (1.8-7.7); NEUTROPHILS % (AUTO) 50.8 % (40.0-70.0); PLATELET COUNT (AUTO) 221 K/uL (150-450); RED BLOOD CELL COUNT(AUTO) 4.18 MIL/uL (4.50-5.90); RED CELL DISTRIBUTION WIDTH 14.4 % (11.5-14.5)
[2019-03-22 08:35] LABS: ALANINE AMINOTRANSFERASE 32 U/L (12-78); ALBUMIN 2.3 g/dL (3.4-5.0); ALKALINE PHOSPHATASE 78 U/L (46-116); AMYLASE 24 U/L (25-115); ANION GAP 14 mmol/L (8-16); BILIRUBIN,TOTAL 0.5 mg/dL (0.1-1.0); CALCIUM, TOTAL 8.3 mg/dL (8.8-10.5); CARBON DIOXIDE 21 mmol/L (22-29); CHLORIDE 100 mmol/L (98-107); CREATININE 0.71 mg/dL (0.60-1.30); GLOMERULAR FILTR. RATE CALC > 60 mL/min (>60); GLUCOSE,RANDOM 235 mg/dL (70-110); LIPASE 330 U/L (73-393); PHOSPHORUS 3.1 mg/dL (2.5-4.9); POTASSIUM 3.4 mmol/L (3.5-5.1); SODIUM SERUM 135 mmol/L (136-145); TOTAL PROTEIN, SERUM 6.1 g/dL (6.4-8.2); UREA NITROGEN, BLOOD 13 mg/dL (7-18)
[2019-03-22] MEDS: DOCUSATE SODIUM 100 MG CAPSULE PO SCH (08:44)
[2019-03-22 08:49] LABS: ASPARTATE AMINOTRANSFERASE 23 U/L (15-37)
[2019-03-22] MEDS ORDERED: MAGNESIUM SULFATE 4 GM/WATER 100 ML IV PRN (11:00)
[2019-03-22] MEDS ORDERED: MAGNESIUM SULFATE 2 GM/WATER 50 ML IV PRN (11:00)
[2019-03-22 11:16] VITALS: BP 136/82
[2019-03-22 11:44] LABS: GLUCOMETER DEV NAME(LOC) 6N.2; GLUCOSE,POINT OF CARE 288 MG/DL (70-110)
[2019-03-22] MEDS: POTASSIUM CHLORIDE 20 MEQ ER TABLET PO PRN (11:51)
[2019-03-22] MEDS: MAGNESIUM OXIDE 400 MG TABLET PO PRN ×2 (11:51→13:35)
[2019-03-22] MEDS ORDERED: INSLAN SQ (13:34)
[2019-03-22 15:40] VITALS: BP 139/90
[2019-03-22 19:02] LABS: GLUCOMETER DEV NAME(LOC) 6N.2; GLUCOSE,POINT OF CARE 307 MG/DL (70-110)
== END 2019-03-22 18:20 | disposition home or self-care (01) | DRG 282 ==
LOC: EMS 09:43 → ICU 18:51 → 4E 03-21 18:50
PROVIDERS: ADMIT Hospitalist; ATTEND Hospitalist
DX: K85.90 Acute pancreatitis without necrosis or infection, unspecified (principal); R65.11 Systemic inflammatory response syndrome (SIRS) of non-infectious origin with acute organ dysfunction; E11.10 Type 2 diabetes mellitus with ketoacidosis without coma; N17.9 Acute kidney failure, unspecified; E87.1 Hypo-osmolality and hyponatremia; E66.01 Morbid (severe) obesity due to excess calories; E83.39 Other disorders of phosphorus metabolism; E83.42 Hypomagnesemia; E87.6 Hypokalemia; K92.1 Melena; Z79.4 Long term (current) use of insulin; Z68.39 Body mass index [BMI] 39.0-39.9, adult; Z23 Encounter for immunization
CPT/HCPCS: 36600; 74176; 76705; 80320; 82010; 82693; 82805; 83036; 83605; 83615; 83735; 83930; 84100; 84132; 87040; 87081; 90686; 93005; 99291; G0378; G0480; G0481; J0610; J0696; J1644; J1815; J2270; J2405; J3370; J3475; J3480; J3490; J7030; J7050; J7060

== ENCOUNTER 2020-07-18 04:08 | Emergency (ER) | payer MEDICAID, OTHER ==
[~2020-07-18] VITALS: Ht 180.3 cm; Wt 104.5 kg
[~2020-07-18 04:08] MED LIST: INSLAN SQ
[2020-07-18] MEDS ORDERED: KETOROLAC TROMETHAMINE 30 MG/ML VIAL IM ONE (05:00)
[2020-07-18] MEDS ORDERED: DiphenhydrAMINE HCL 50 MG/ML VIAL IM ONE (05:00)
[2020-07-18 05:34] VITALS: BP 136/72
== END 2020-07-18 06:00 | disposition home or self-care (01) ==
LOC: EMS 04:15
DX: T63.391A Toxic effect of venom of other spider, accidental (unintentional), initial encounter (principal); Y92.89 Other specified places as the place of occurrence of the external cause
CPT/HCPCS: 96372; 99284; J1200; J1885